=== PATIENT | female | born 1970 ===

== ENCOUNTER 2017-03-30 22:50 | Emergency (ER) | payer BC ==
[2017-03-30 23:00] VITALS: BP 138/85; PULSE 74; RESP 16; TEMP 98.3; O2SAT 96
--- NOTE | 2017-03-30 23:21 | ED PDOC ---
HPI: Female Pain Time Seen by Provider: 03/30/17 23:05 Chief Complaint (Nursing): Female Genitourinary Chief Complaint (Provider): vaginal irritation History Per: Patient History/Exam Limitations: no limitations Onset/Duration Of Symptoms: Days (3) Current Symptoms Are (Timing): Still Present Quality Of Discomfort: Burning Additional History Per: Patient Additional Complaint(s): 46 y/o female presents with vaginal irritation x 3 days. Patient notes history of yeast infections, states symptoms seem worse, with associated vaginal burning , redness, and white discharge. Patient notes no relief with [id number] monistat and DIflucan tablet taken yesterday. Denies fever, nausea/vomiting, abdominal pain, back pain, vaginal bleeding. Abnormal Vaginal Bleeding: No Past Medical History Reviewed: Historical Data, Nursing Documentation, Vital Signs Vital Signs: Last Vital Signs Temp 98.3 F 03/30/17 22:54 Pulse 74 03/30/17 22:54 Resp 16 03/30/17 22:54 BP 138/85 03/30/17 22:54 Pulse Ox 96 03/30/17 22:54 - Medical History PMH: No Chronic Diseases - Surgical History Other surgeries: hysterectomy - Family History Family History: States: No Known Family Hx - Living Arrangements Living Arrangements: With Family - Home Medications Home Medications: Ambulatory Orders Medication Instructions Recorded Fluconazole [Diflucan] 150 mg PO ONCE #1 tab 03/30/17 - Allergies Allergies/Adverse Reactions: Allergies Allergy/AdvReac Type Severity Reaction Status Date / Time No Known Allergies Allergy Verified 03/30/17 23:00 Review of Systems ROS Statement: Except As Marked, All Systems Reviewed And Found Negative Genitourinary Female: Positive for: Vaginal Discharge, Rash Physical Exam - Reviewed Nursing Documentation Reviewed: Yes Vital Signs Reviewed: Yes - Physical Exam Appears: Positive for: Well, Non-toxic, No Acute Distress Head Exam: Positive for: ATRAUMATIC, NORMAL INSPECTION, NORMOCEPHALIC Skin: Positive for: Normal Color Eye Exam: Positive for: Normal appearance ENT: Positive for: Normal ENT Inspection Cardiovascular/Chest: Positive for: Regular Rate, Rhythm Respiratory: Positive for: Normal Breath Sounds Gastrointestinal/Abdominal: Positive for: Bowel Sounds, Soft Pelvic Exam: Positive for: Speculum Exam Normal, No Cerv. Motion Tender, Discharge ("cottage cheese" discahrge noted throughout vaginal vault), Other ( exam chaperoned by Alena Judd RN). Negative for: External Exam Normal (vulva dry, erythematous), Active Bleeding Back: Negative for: L CVA Tenderness, R CVA Tenderness Extremity: Positive for: Normal ROM Neurologic/Psych: Positive for: Alert, Oriented - ECG O2 Sat by Pulse Oximetry: 96 - Progress ED Course And Treament: urine, genital swabs Patient educated on findings, discharged with rx Diflucan with instructions to take 72 hours after first dose was taken. Follow up Complex Care Nurse 2-3 days. Return to ED for worsening/concerning symptoms. Disposition - Clinical Impression Clinical Impression: Vulvovaginal candidiasis - Patient ED Disposition Is Patient to be Admitted: No Counseled Patient/Family Regarding: Studies Performed, Diagnosis, Need For Followup - Disposition Referrals: Sukhdeep Jones MD [Primary Care Provider] - Disposition: Routine/Home Disposition Time: 00:02 Condition: STABLE Additional Instructions: Take tablet 72 hours from previous tablet taken. Follow up with Complex Care Nurse in 2-3 days. Return to ED for worsening/concerning symptoms. Prescriptions: Fluconazole [Diflucan] 150 mg PO ONCE #1 tab Instructions: Vulvovaginal Candidiasis (ED)
[2017-03-30 23:44] LABS: RBC URINE 1 /hpf (0-3); URINE BACTERIA RARE (<OCC); URINE BILIRUBIN NEGATIVE (NEGATIVE); URINE BLOOD NEGATIVE (NEGATIVE); URINE COLOR YELLOW (YELLOW); URINE GLUCOSE (UA) NEG (Normal); URINE KETONE NEGATIVE (NEGATIVE); URINE PROTEIN NEGATIVE (NEGATIVE); URINE UROBILINOGEN 0.2-1.0 mg/dL (0.2-1.0); WBC URINE < 1 /hpf (0-5)
[2017-03-30 23:47] LABS: URINE LEUKOCYTE ESTERASE NEGATIVE Leu/uL (Negative)
== END 2017-03-31 00:32 | disposition home or self-care (01) ==
LOC: H.ER 22:50
DX: B37.3 Candidiasis of vulva and vagina (principal)